=== PATIENT | male | born 1950 | race Caucasian/White ===

== ENCOUNTER → 2024-06-13 07:05 | Outpatient (REF) | payer MEDICARE, OTHER, SELFPAY | LOC: EMG 07:05 | PROVIDERS: ATTENDING PHYSICIAN Podiatrist; FAMILY PHYSICIAN Family Medicine | DX: M79.673 Pain in unspecified foot (principal); E11.42 Type 2 diabetes mellitus with diabetic polyneuropathy; G57.60 Lesion of plantar nerve, unspecified lower limb; R20.0 Anesthesia of skin | CPT/HCPCS: 95886; 95911 ==

== ENCOUNTER → 2024-07-18 14:26 | Outpatient (REF) | payer MEDICARE, OTHER, SELFPAY | LOC: PAVMRI 14:26 | PROVIDERS: ATTENDING PHYSICIAN Podiatrist; FAMILY PHYSICIAN Family Medicine | DX: M79.673 Pain in unspecified foot (principal); E11.42 Type 2 diabetes mellitus with diabetic polyneuropathy; G57.60 Lesion of plantar nerve, unspecified lower limb | CPT/HCPCS: 73718 ==